=== PATIENT | male | born 1995 | race Caucasian/White ===

== ENCOUNTER 2016-09-04 04:28 | Emergency (ER) | payer OTHER ==
[2016-09-04 05:27] VITALS: BP 121/81
== END 2016-09-04 05:17 | disposition other institution (70) ==
LOC: ED 04:28
DX: S00.01XA Abrasion of scalp, initial encounter (principal); Y08.89XA Assault by other specified means, initial encounter; Y93.89 Activity, other specified; Y99.8 Other external cause status; Y92.89 Other specified places as the place of occurrence of the external cause